=== PATIENT | male | born 1970 | race Two or more races ===

== ENCOUNTER 2018-12-12 16:00 | Outpatient (CLI) | payer OTHER ==
[~2018-12-12 16:00] MED LIST: PAXIL 10MG; PEPCID COM1 TAB.CHEW PO; SYNTHROID175 MCG PO; XANAX XR0.5 MG PO; [UNRECOGNIZED DRUG - OTHER]
== END 2018-12-12 16:07 | disposition home or self-care (01) ==
LOC: LAB 16:00
DX: N20.0 Calculus of kidney (principal); R31.1 Benign essential microscopic hematuria

== ENCOUNTER 2018-12-23 10:13 | Emergency (ER) | payer OTHER ==
[~2018-12-23] VITALS: Ht 182.9 cm; Wt 99.8 kg
[2018-12-23] MEDS ORDERED: SYNTHROID200 MCG (10:21)
[2018-12-23] MEDS ORDERED: CLONAZEPAM2 MG (10:22)
== END 2018-12-23 14:28 | disposition home or self-care (01) ==
LOC: ER 10:13
DX: M54.5 Low back pain (principal)

== ENCOUNTER 2025-05-10 05:18 | Inpatient (IN) | payer OTHER ==
[~2025-05-10] VITALS: Ht 152.4 cm; Wt 104.3 kg
[~2025-05-10 05:18] MED LIST changes: +CLONAZEPAM2 MG; +SYNTHROID200 MCG
--- NOTE | 2025-05-10 05:26 | NUR ---
SE RECIBE PTE ALERTA Y ORIENTADO X3. REFIERE DOLOR ABDOMINAL Y FIEBRE DESDE LA MADRUGADA DE HOY. SE MIDE SV Y SE UBICA
[2025-05-10] MEDS ORDERED: 0.9 % SODIUM CHLORIDE 1,000 ML IV STA (05:55)
[2025-05-10] MEDS ORDERED: MORPHINE SULFATE 4 MG/ML VIAL IV STA (05:56)
[2025-05-10] MEDS ORDERED: KETOROLAC TROMETHAMINE 30 MG VIAL IV STA (05:56)
[2025-05-10] MEDS ORDERED: HYOSCYAMINE SULFATE 0.125 MG TAB.SUBL SL ONE (06:00)
--- NOTE | 2025-05-10 06:17 | NUR ---
SE LE ORIENTA A PACIENTE SOBRE LA ORDEN MEDICA, REFIERE ENTENDER LAS MISMAS. SE CANALIZA Y SE LE COLOCA EL IVF'S, SE LE AUBRIE LAS MUETRAS Y SE LE ADMINISTRAN LOS MEDICAMENTOS NICCI LA ORDEN MEDICA.
[2025-05-10 07:00] LABS: INR 1.17
[2025-05-10 07:16] LABS: BASO % 0.2 % (0.1-1.2); EOS # 0.00 (0.04-0.54); EOS % 0.0 % (0.7-7.0); LYMPH # 0.57 (1.18-3.74); LYMPH % 4.8 % (19.3-53.1); MEAN PLATELET VOLUME 10.20 fl (9.4-12.4); MONO # 0.89 (0.24-0.82); MONO % 7.5 % (4.7-12.5); NEUT # 10.35 (1.56-6.13); NEUT % 87.1 % (34.0-71.1); RED CELL DISTRIBUTION WIDTH 13.8 % (11.6-14.4)
[2025-05-10 07:37] LABS: ALT/SGPT 20.0 U/L (12-78); AST/SGOT 21.0 U/L (15-37); BILIRUBIN TOTAL 1.58 mg/dL (0.3-1.2); BUN CREA RATIO 12.0 (7.0-25.0); CREATININE SERUM 1.27 mg/dL (0.70-1.30); GFR 59.55; GLOBULINA 3.7 G/DL (2.4-3.5); GLUCOSE FASTING 100.0 mg/dL (65-100); OSMOLALITY SERUM 277.0 MOSM/KG (275-295)
[2025-05-10] MEDS ORDERED: PIPERACILLIN/TAZOBACTAM SODIUM 3.375 GM VIAL IV STA (07:54)
[2025-05-10] MEDS ORDERED: ENALAPRILAT DIHYDRATE 1.25 MG/ML VIAL IV PRN (09:15)
[2025-05-10] MEDS ORDERED: MEPERIDINE HCL 25 MG/ML AMPUL IV PRN (09:15)
[2025-05-10] MEDS ORDERED: ONDANSETRON HCL 2 MG/ML VIAL IV PRN (09:15)
[2025-05-10] MEDS ORDERED: PIPERACILLIN/TAZOBACTAM SODIUM 3.375 GM VIAL IV SCH (12:00)
[2025-05-10] MEDS ORDERED: BUPIVACAINE HCL 30 ML VIAL IJ ONE (13:15)
[2025-05-10] MEDS ORDERED: LIDOCAINE HCL 1%/EPINEPHRINE 20ML VIAL IJ ONE (13:30)
[2025-05-10] MEDS ORDERED: MORPHINE SULFATE 4 MG/ML VIAL IV ONE ×2 (14:00→15:00)
[2025-05-10] MEDS ORDERED: MORPHINE SULFATE 4 MG/ML CARTRIDGE IV PRN (14:15)
[2025-05-10 16:30] VITALS: BP 133/78; O2SAT 95
[2025-05-10] MEDS ORDERED: GABAPENTIN 300 MG CAPSULE PO SCH (17:00)
[2025-05-10] MEDS ORDERED: ACETAMINOPHEN 325 MG TABLET PO SCH (17:00)
[2025-05-11 01:30] VITALS: BP 109/71; O2SAT 95
[2025-05-11 08:00] VITALS: BP 103/69; O2SAT 94
[2025-05-11 08:24] VITALS: BP 103/69; O2SAT 94
[2025-05-11 14:32] LABS: BASO % 0.1 % (0.1-1.2); EOS # 0.02 (0.04-0.54); EOS % 0.2 % (0.7-7.0); LYMPH # 0.61 (1.18-3.74); LYMPH % 6.2 % (19.3-53.1); MEAN PLATELET VOLUME 9.80 fl (9.4-12.4); MONO # 0.71 (0.24-0.82); MONO % 7.2 % (4.7-12.5); NEUT # 8.46 (1.56-6.13); NEUT % 85.5 % (34.0-71.1); RED CELL DISTRIBUTION WIDTH 13.8 % (11.6-14.4)
[2025-05-11 15:41] LABS: BUN CREA RATIO 12.0 (7.0-25.0); CREATININE SERUM 1.13 mg/dL (0.70-1.30); GFR 68.14; GLUCOSE FASTING 77.0 mg/dL (65-100); OSMOLALITY SERUM 275.0 MOSM/KG (275-295)
[2025-05-11 17:15] VITALS: BP 118/81; O2SAT 95
[2025-05-12 00:55] VITALS: BP 102/71; O2SAT 96
[2025-05-12 08:00] VITALS: BP 116/83; O2SAT 98
[2025-05-12 18:05] VITALS: BP 119/81; O2SAT 95
[2025-05-13 08:00] VITALS: BP 122/80; O2SAT 96
[2025-05-13 17:17] VITALS: BP 126/84; O2SAT 96
[2025-05-14 01:16] VITALS: BP 110/76; O2SAT 96
[2025-05-14 13:52] LABS: BASO % 0.5 % (0.1-1.2); EOS # 0.08 (0.04-0.54); EOS % 1.2 % (0.7-7.0); LYMPH # 0.86 (1.18-3.74); LYMPH % 13.3 % (19.3-53.1); MEAN PLATELET VOLUME 9.70 fl (9.4-12.4); MONO # 1.10 (0.24-0.82); NEUT # 4.35 (1.56-6.13); NEUT % 67.0 % (34.0-71.1); RED CELL DISTRIBUTION WIDTH 13.2 % (11.6-14.4)
[2025-05-14 13:53] LABS: MONO % 16.9 % (4.7-12.5)
[2025-05-14 14:37] LABS: BUN CREA RATIO 14.0 (7.0-25.0); CREATININE SERUM 0.92 mg/dL (0.70-1.30); GFR 86.39; GLUCOSE FASTING 101.0 mg/dL (65-100); OSMOLALITY SERUM 272.0 MOSM/KG (275-295)
[2025-05-14 17:00] VITALS: BP 136/79; O2SAT 98
[2025-05-15 03:48] VITALS: BP 113/75; O2SAT 94
[2025-05-15] MEDS ORDERED: RINGERS SOLUTION,LACTATED 1,000 ML IV SCH (07:15)
[2025-05-15 07:43] LABS: ALT/SGPT 86.0 U/L (12-78); AST/SGOT 68.0 U/L (15-37); BILIRUBIN TOTAL 1.51 mg/dL (0.3-1.2); BUN CREA RATIO 11.0 (7.0-25.0); CREATININE SERUM 1.11 mg/dL (0.70-1.30); GFR 69.56; GLOBULINA 3.9 G/DL (2.4-3.5); GLUCOSE FASTING 96.0 mg/dL (65-100); OSMOLALITY SERUM 272.0 MOSM/KG (275-295)
[2025-05-15 08:00] VITALS: BP 119/75; O2SAT 96
[2025-05-15] MEDS ORDERED: PANTOPRAZOLE SODIUM 40 MG/VIAL VIAL IV SCH (09:00)
[2025-05-15 16:00] VITALS: BP 117/77; O2SAT 97
[2025-05-15] MEDS ORDERED: DIATRIZOATE MEGLUMINE, SODIUM 30 ML BOTTLE PO NR (16:30)
[2025-05-16 01:38] VITALS: BP 103/68; O2SAT 93
[2025-05-16 05:50] LABS: BASO % 0.6 % (0.1-1.2); EOS # 0.12 (0.04-0.54); EOS % 1.9 % (0.7-7.0); LYMPH # 1.45 (1.18-3.74); LYMPH % 23.5 % (19.3-53.1); MEAN PLATELET VOLUME 9.50 fl (9.4-12.4); MONO # 1.26 (0.24-0.82); NEUT # 3.21 (1.56-6.13); NEUT % 52.2 % (34.0-71.1); RED CELL DISTRIBUTION WIDTH 13.2 % (11.6-14.4)
[2025-05-16 08:39] LABS: BAND MAN 2.0 %; LYMPHOCYTE MAN 30.0 %; MONO % 20.5 % (4.7-12.5); MONOCYTE MAN 12.0 %; NEUTROPHILS MAN 46.0 %
[2025-05-16 13:53] VITALS: BP 119/75; O2SAT 96
[2025-05-16] MEDS ORDERED: HYDROCORTISONE ACETATE 25 MG/SUPP.RECT SUPP.RECT RECTAL SCH (17:00)
[2025-05-16 18:00] VITALS: BP 106/68; O2SAT 95
[2025-05-17 00:46] VITALS: BP 108/66; O2SAT 97
[2025-05-17 08:00] VITALS: BP 103/70; O2SAT 95
[2025-05-17 08:52] LABS: BASO % 0.3 % (0.1-1.2); EOS # 0.08 (0.04-0.54); EOS % 1.4 % (0.7-7.0); LYMPH # 0.59 (1.18-3.74); LYMPH % 10.2 % (19.3-53.1); MEAN PLATELET VOLUME 9.60 fl (9.4-12.4); MONO # 0.68 (0.24-0.82); MONO % 11.8 % (4.7-12.5); NEUT # 4.33 (1.56-6.13); NEUT % 75.3 % (34.0-71.1); RED CELL DISTRIBUTION WIDTH 13.2 % (11.6-14.4)
[2025-05-17 17:21] VITALS: BP 127/78; O2SAT 98
[2025-05-18 01:08] VITALS: BP 108/71; O2SAT 98
[2025-05-18 10:36] VITALS: BP 94/62; O2SAT 96
== END 2025-05-18 11:50 | disposition home or self-care (01) | DRG 398 ==
LOC: ER 05:18 → SURG 09:27
PROVIDERS: Internal Medicine Infectious Disease; Student in an Organized Health Care Education/Training Program; ADMIT Student in an Organized Health Care Education/Training Program; ATTEND Student in an Organized Health Care Education/Training Program
PROC: 3E1M48Z Irrigation of Peritoneal Cavity using Irrigating Substance, Percutaneous Endoscopic Approach (ICD-10-PCS; 2025-05-10)
PROC: BW21ZZZ Computerized Tomography (CT Scan) of Abdomen and Pelvis (ICD-10-PCS; 2025-05-10)
PROC: 0DTJ4ZZ Resection of Appendix, Percutaneous Endoscopic Approach (ICD-10-PCS; principal; 2025-05-10 13:55)
PROC: BW21YZZ Computerized Tomography (CT Scan) of Abdomen and Pelvis using Other Contrast (ICD-10-PCS; 2025-05-15)
DX: K35.33 Acute appendicitis with perforation, localized peritonitis, and gangrene, with abscess (principal); K56.7 Ileus, unspecified; K91.89 Other postprocedural complications and disorders of digestive system; K66.0 Peritoneal adhesions (postprocedural) (postinfection); K64.9 Unspecified hemorrhoids

== ENCOUNTER 2025-05-27 13:26 | Inpatient (IN) | payer OTHER ==
[~2025-05-27] VITALS: Ht 182.9 cm; Wt 99.8 kg
[2025-05-27] MEDS ORDERED: 0.9 % SODIUM CHLORIDE 1,000 ML IV STA (13:37)
[2025-05-27] MEDS ORDERED: PIPERACILLIN/TAZOBACTAM SODIUM 3.375 GM VIAL IV ONE (13:45)
[2025-05-27 14:38] LABS: BASO % 0.6 % (0.1-1.2); EOS # 0.14 (0.04-0.54); EOS % 2.2 % (0.7-7.0); LYMPH # 1.41 (1.18-3.74); LYMPH % 22.1 % (19.3-53.1); MEAN PLATELET VOLUME 8.90 fl (9.4-12.4); MONO # 0.56 (0.24-0.82); MONO % 8.8 % (4.7-12.5); NEUT # 4.19 (1.56-6.13); NEUT % 65.8 % (34.0-71.1); RED CELL DISTRIBUTION WIDTH 13.3 % (11.6-14.4)
[2025-05-27 15:09] LABS: ALT/SGPT 58.0 U/L (12-78); AST/SGOT 31.0 U/L (15-37); BILIRUBIN TOTAL 0.54 mg/dL (0.3-1.2); BUN CREA RATIO 10.0 (7.0-25.0); CREATININE SERUM 1.01 mg/dL (0.70-1.30); GFR 77.57; GLOBULINA 5.4 G/DL (2.4-3.5); GLUCOSE FASTING 93.0 mg/dL (65-100); OSMOLALITY SERUM 278.0 MOSM/KG (275-295)
[2025-05-27 15:14] LABS: URINE APPEARANCE Clear; URINE BILIRRUBIN Negative (NEGATIVE); URINE BLOOD Negative; URINE COLOR Yellow; URINE GLUCOSE Negative (NEGATIVE); URINE KETONE Trace (NEGATIVE); URINE LEUKOCYTE Negative; URINE NITRATE Negative; URINE PROTEIN Trace (NEGATIVE); URINE UROBILINOGEN 1.0 E.U./dl
[2025-05-27 15:19] LABS: URINE EPITHELIAL CELLS 2.6 uL (0.0-38.8); URINE RBC 13.1 uL (0.0-20.8); URINE WBC 2.4 uL (0.0-23.2)
[2025-05-27 15:23] LABS: URINE BACTERIA 2.3 uL (0.0-1933); URINE CAST 0.58 uL (0.0-1.40)
[2025-05-27] MEDS ORDERED: FAMOTIDINE/PF 20 MG in 0.9 % SODIUM CHLORIDE 8 ML IV PUSH SCH (17:35)
[2025-05-27] MEDS ORDERED: ACETAMINOPHEN 500 MG GEL..CAP PO PRN (17:45)
[2025-05-27] MEDS ORDERED: ONDANSETRON HCL 4 MG in 0.9 % SODIUM CHLORIDE 50 ML IV PRN (17:45)
[2025-05-27] MEDS ORDERED: 0.9 % SODIUM CHLORIDE 1,000 ML IV SCH (17:45)
[2025-05-27] MEDS ORDERED: PIPERACILLIN/TAZOBACTAM SODIUM 3.375 GM in 0.9 % SODIUM CHLORIDE 100 ML IV SCH (18:00)
[2025-05-27 18:34] LABS: INR 1.1
[2025-05-27 18:40] LABS: COVID-19 AG NEGATIVE (NEGATIVE)
[2025-05-27 22:23] VITALS: BP 111/72; O2SAT 100
[2025-05-28 00:37] VITALS: BP 93/57; O2SAT 96
[2025-05-28] MEDS ORDERED: PIPERACILLIN/TAZOBACTAM SODIUM 3.375 GM VIAL IV ONE (03:42)
[2025-05-28] MEDS ORDERED: LEVOTHYROXINE SODIUM 200 MCG TABLET PO SCH (06:00)
[2025-05-28 07:54] VITALS: BP 90/60
[2025-05-28] MEDS ORDERED: GABAPENTIN 300 MG CAPSULE PO SCH (09:00)
[2025-05-28] MEDS ORDERED: LINEZOLID 600 MG TABLET PO SCH (09:00)
[2025-05-28] MEDS ORDERED: MORPHINE SULFATE 2 MG/ML CARTRIDGE IV PRN (09:30)
[2025-05-28] MEDS ORDERED: ONDANSETRON HCL 2 MG/ML VIAL IM PRN (09:30)
[2025-05-28 16:38] VITALS: BP 101/65
[2025-05-29 01:55] VITALS: BP 106/70; O2SAT 97
[2025-05-29 06:18] LABS: BASO % 0.8 % (0.1-1.2); EOS # 0.16 (0.04-0.54); EOS % 2.5 % (0.7-7.0); LYMPH # 1.38 (1.18-3.74); LYMPH % 21.5 % (19.3-53.1); MEAN PLATELET VOLUME 9.40 fl (9.4-12.4); MONO # 0.62 (0.24-0.82); MONO % 9.7 % (4.7-12.5); NEUT # 4.18 (1.56-6.13); NEUT % 65.0 % (34.0-71.1); RED CELL DISTRIBUTION WIDTH 13.4 % (11.6-14.4)
[2025-05-29 06:53] LABS: BUN CREA RATIO 8.0 (7.0-25.0); CREATININE SERUM 1.07 mg/dL (0.70-1.30); GFR 72.57; GLUCOSE FASTING 92.0 mg/dL (65-100); OSMOLALITY SERUM 283.0 MOSM/KG (275-295)
[2025-05-29 08:30] VITALS: BP 93/59
[2025-05-29] MEDS ORDERED: ENOXAPARIN SODIUM 40 MG/0.4 ML SYRINGE SUBCUTANEO SCH (09:00)
[2025-05-29] MEDS ORDERED: SODIUM CL 0.9% 100 ML IV.SOLN IV ONE (13:18)
== END 2025-05-29 16:25 | disposition home or self-care (01) | DRG 863 ==
LOC: ER 13:26 → MEDJ 17:56
PROVIDERS: Emergency Medicine; General Practice; ADMIT Student in an Organized Health Care Education/Training Program; ATTEND Student in an Organized Health Care Education/Training Program
PROC: BW21YZZ Computerized Tomography (CT Scan) of Abdomen and Pelvis using Other Contrast (ICD-10-PCS; principal; 2025-05-27)
DX: T81.49XA Infection following a procedure, other surgical site, initial encounter (principal); E06.3 Autoimmune thyroiditis; Y83.8 Other surgical procedures as the cause of abnormal reaction of the patient, or of later complication, without mention of misadventure at the time of the procedure